=== PATIENT | female | born 1960 | race Caucasian/White ===

== ENCOUNTER 2017-06-27 08:04 | Outpatient (CLI) | payer BC ==
[2017-06-27] MEDS ORDERED: Iopamidol 370 76% 100 ML VIAL ONE (13:10)
--- NOTE | 2017-06-27 13:12 | CT ---
CT ABDOMEN AND PELVIS WITH AND WITHOUT IV CONTRAST: Date: 06/27/17 HISTORY: Right flank pain, nephrolithiasis. Lower abdominal pain on both sides, but hurts more on the right si nce 06/14/17. The patient went to an ER and was diagnosed with bladder infection. No history of cance r. Patient has a history of cystocele repair. FINDINGS: The lung bases are clear. There is a small, focal area of hyperenhancement on the postcontrast images (arterial phase) in the right lobe of the liver measuring about 9.0 mm. This most likely represents a flash-filling hemangioma. Other possibilities include FNH, hepatic adenoma, less likely primary or secondary malignancies. No calcified gallstones are seen. The spleen, pancreas, and adrenal glands are normal. No calculi seen in the kidneys, ureters, or the urinary bladder. No hydroureteronephrosis noted on ei ther side. Postcontrast images demonstrate no evidence of renal mass. No free air, free fluid, or lymphadenopathy seen in the abdomen or pelvis. There are vascular calcifi cations without evidence of aneurysmal dilatation of the abdominal aorta. A normal appearing appendix is present. There are bilateral small, fat-containing inguinal hernia. Uterus and ovaries are presen t. There are mild degenerative changes in the spine. IMPRESSION: 1. No CT evidence of urinary calculi/obstruction or renal mass. 2. Small, nonspecific hypervascular lesion in the right lobe of the liver, as discussed above. POS: [facility]
== END 2017-06-27 08:05 | disposition home or self-care (01) ==
LOC: CT 08:04
PROVIDERS: ATTEND Family Medicine
DX: R10.9 Unspecified abdominal pain (principal); K76.89 Other specified diseases of liver
CPT/HCPCS: 74178

== ENCOUNTER 2017-07-08 10:06 | Outpatient (CLI) | payer BC | END 2017-07-08 10:07 | disposition home or self-care (01) | LOC: BICMAMMO 10:06 | PROVIDERS: ATTEND Obstetrics & Gynecology | DX: Z12.31 Encounter for screening mammogram for malignant neoplasm of breast (principal); Z01.419 Encounter for gynecological examination (general) (routine) without abnormal findings; Z80.3 Family history of malignant neoplasm of breast | CPT/HCPCS: 77063; 77067 ==

== ENCOUNTER 2018-10-19 11:47 | Outpatient (CLI) | payer BC ==
--- NOTE | 2018-10-19 12:20 | MMO ---
Bilateral MAMMO Bilat Screen [id number]. CLINICAL HISTORY: Patient is 57 years old and is seen for screening. The patient has no personal history of cancer. VIEWS: The views performed were: bilateral craniocaudal with tomosynthesis and bilateral mediolateral oblique with tomosynthesis. FILMS COMPARED: The present examination has been compared to prior imaging studies performed at [facility] on 07/08/2017, and at [facility] on 11/18/2015 and 12/25/2015. MAMMOGRAM FINDINGS: There are scattered fibroglandular densities. There are benign appearing calcifications seen in both breasts. There are no suspicious masses, suspicious calcifications, or new areas of architectural distortion. IMPRESSION: THERE IS NO MAMMOGRAPHIC EVIDENCE OF MALIGNANCY. A ROUTINE FOLLOW-UP MAMMOGRAM IN 1 YEAR IS RECOMMENDED. THE RESULTS OF THIS EXAM WERE SENT TO THE PATIENT. ACR BI-RADS Category 2 - Benign finding MAMMOGRAPHY NOTE: 1. A negative mammogram report should not delay a biopsy if a dominant of clinically suspicious mass is present. 2. Approximately 10% to 15% of breast cancers are not detected by mammography. 3. Adenosis and dense breasts may obscure an underlying neoplasm. Reported by: KADEN FARFAN MD Electonically Signed: [id number]
== END 2018-10-19 11:48 | disposition home or self-care (01) ==
LOC: BICMAMMO 11:47
PROVIDERS: ATTEND Family Medicine
DX: Z12.31 Encounter for screening mammogram for malignant neoplasm of breast (principal)
CPT/HCPCS: 77063; 77067